=== PATIENT | male | born 1955 | race Caucasian/White ===

== ENCOUNTER 2016-05-14 09:52 | Emergency (ER) | payer MEDICARE ==
--- NOTE | 2016-05-14 10:04 | ED.PDOC ---
History of Present Illness - General Chief Complaint: Cardiovascular Problem Stated Complaint: bilateral leg swelling,sob Time Seen by Provider: 05/14/16 09:58 Source: patient, RN notes reviewed Exam Limitations: no limitations - History of Present Illness Initial Comments: Jordan Handley 61 y/o male with history of cad,chf , asthma,dm2 stated that for the last 4 days both legs are getting more sweled up denies pain ,trauma ,fever cough.He also stated having exertional dyspnea ,2 pillow orthopnea but no chest pain.Had cardiac cath 5-7 years ago but unable to put stent patient stated arteries are narrowed. Timing/Duration: getting worse, other - 4 days ago Severity: moderate Improving Factors: nothing Worsening Factors: movement Associated Symptoms: shortness of breath Allergies/Adverse Reactions: Allergies NO KNOWN ALLERGY Allergy (Unverified 06/08/14 16:00) Home Medications: Ambulatory Orders Albuterol Inhaler [Ventolin Hfa Inhaler] 2 puff INH QID PRN #1 inh 06/08/14 Aspirin [Aspirin Adult Low Dose] 81 mg PO DAILY 05/14/16 Carvedilol 25 mg PO BID 05/14/16 Empagliflozin [Jardiance] 10 mg PO DAILY 05/14/16 Furosemide 40 mg PO BID 05/14/16 Glipizide 5 mg PO DAILY 05/14/16 Lisinopril 20 mg PO DAILY 05/14/16 Lisinopril & Hydrochlorothiazi [Lisinopril/Hctz 20-25 mg] 1 tab PO DAILY Metformin HCl 1,000 mg PO BID 05/14/16 Nitroglycerin 0.4 mg Tab [Nitrostat] 0 ea SL .Q5M 05/14/16 Potassium Chloride [Potassium Chloride ER] 20 meq PO DAILY 05/14/16 Pravastatin Sodium [Pravachol] 20 mg PO BEDTIME 05/14/16 Review of Systems - Review of Systems Constitutional: States: no symptoms reported EENTM: States: no symptoms reported Respiratory: States: see HPI Cardiology: States: see HPI, other - occasional chest heaviness Gastrointestinal/Abdominal: States: no symptoms reported Genitourinary: States: no symptoms reported Musculoskeletal: States: neck pain - chronic Skin: States: no symptoms reported Neurological: States: paresthesia - both lower extremities Endocrine: States: no symptoms reported Hematologic/Lymphatic: States: no symptoms reported Past Medical History (General) - Patient Medical History Hx of COPD: Yes Hx Cardiac Disorders: Yes Hx Congestive Heart Failure: Yes Hx Hypertension: Yes Hx Diabetes: Yes Hx Cancer: Yes - kidney Surgical History: other - left nephrectomy,neck ankle-orif - Vaccination History Hx Tetanus, Diphtheria Vaccination: Yes Hx Influenza Vaccination: No Hx Pneumococcal Vaccination: Yes - Social History Hx Tobacco Use: Yes Hx Alcohol Use: No Hx Depression: No - Female History Patient : No Family Medical History - Family History Mother Family History: Unknown Hx Family Congestive Heart Failure: Yes Hx Family Hypertension: Yes Hx Cardiac Disease: Yes Hx Family Diabetes: Yes Hx Family Cancer: Yes - skin,colon Physical Exam - Physical Exam General Appearance: Alert, Comfortable, No apparent distress Eye Exam: bilateral normal Ears, Nose, Throat: hearing grossly normal, normal ENT inspection, normal pharynx Neck: non-tender, full range of motion, supple Respiratory: chest non-tender, lungs clear, normal breath sounds, no respiratory distress, no accessory muscle use Cardiovascular/Chest: normal peripheral pulses, regular rate, rhythm, no edema, no gallop, no JVD, no murmur Peripheral Pulses: radial,right: 2+, radial,left: 2+, dorsalis pedis,right: 1+, dorsalis pedis,left: 1+ Gastrointestinal/Abdominal: normal bowel sounds, non tender, soft, no organomegaly, no pulsatile mass Back Exam: normal inspection, no CVA tenderness, no vertebral tenderness Extremity: normal range of motion, non-tender, normal inspection, pedal edema - bilateral 2+ Neurologic: no motor/sensory deficits, alert, normal mood/affect, oriented x 3 Skin Exam: normal color, warm/dry Lymphatic: no adenopathy Progress - Results/Orders Results/Orders: 05/14/16 10:30 EKG STAT 05/14/16 11:12 THYROID STIMULATING HORMONE Stat URIC ACID Stat Laboratory Results WBC 7.0 K/mm3 (4.8-10.8) 05/14/16 10:15 RBC 5.06 M/mm3 (4.70-6.10) 05/14/16 10:15 Hgb 14.1 gm/dL (14.0-18.0) 05/14/16 10:15 Hct 42.8 % (42.0-52.0) 05/14/16 10:15 MCV 84.7 fl (80.0-94.0) 05/14/16 10:15 MCH 27.8 pg (27.0-31.0) 05/14/16 10:15 MCHC 32.8 g/dL (33.0-37.0) L 05/14/16 10:15 RDW 16.1 % (11.5-14.5) H 05/14/16 10:15 Plt Count 231 K/mm3 (130-400) 05/14/16 10:15 MPV 8.9 fl (7.40-10.4) 05/14/16 10:15 Absolute Neuts (auto) 4.70 K/uL (1.8-6.8) 05/14/16 10:15 Absolute Lymphs (auto) 1.60 K/uL (1.0-3.4) 05/14/16 10:15 Absolute Monos (auto) 0.40 K/uL (0.2-0.8) 05/14/16 10:15 Absolute Eos (auto) 0.20 K/uL (0.0-0.4) 05/14/16 10:15 Absolute Basos (auto) 0.10 K/uL (0.0-0.1) 05/14/16 10:15 Neutrophils % 67.7 % (42.0-78.0) 05/14/16 10:15 Lymphocytes % 23.0 % (20.0-50.0) 05/14/16 10:15 Monocytes % 5.4 % (2.0-9.0) 05/14/16 10:15 Eosinophils % 2.7 % (1.0-5.0) 05/14/16 10:15 Basophils % 1.2 % (0.0-2.0) 05/14/16 10:15 PT 11.3 SECONDS (9.4-12.5) 05/14/16 10:15 INR 1.000 05/14/16 10:15 PTT (SP) 34.7 SECONDS (25.1-36.5) 05/14/16 10:15 D-Dimer, Quantitative < 230 ng/mL (0-230) 05/14/16 10:15 Sodium 140 mmol/L (135-145) 05/14/16 10:15 Potassium 3.9 mmol/L (3.6-5.0) 05/14/16 10:15 Chloride 101 mmol/L (101-111) 05/14/16 10:15 Carbon Dioxide 30 mmol/L (21-31) 05/14/16 10:15 Anion Gap 12.9 (12-18) 05/14/16 10:15 BUN 22 mg/dL (7-18) H 05/14/16 10:15 Creatinine 1.34 mg/dL (0.6-1.3) H 05/14/16 10:15 BUN/Creatinine Ratio 16.4 (10-20) 05/14/16 10:15 Random Glucose 248 mg/dL (70-105) H 05/14/16 10:15 Serum Osmolality 291.0 mOsm/L (275-295) 05/14/16 10:15 Uric Acid 5.1 mg/dL (2.6-7.2) 05/14/16 11:12 Calcium 8.8 mg/dL (8.4-10.2) 05/14/16 10:15 Magnesium 1.9 mg/dL (1.8-2.5) 05/14/16 10:15 Total Bilirubin 0.5 mg/dL (0.2-1.0) 05/14/16 10:15 Direct Bilirubin 0.1 mg/dL (0-0.2) 05/14/16 10:15 Indirect Bilirubin 0.4 mg/dL (0.2-0.8) 05/14/16 10:15 AST 29 IU/L (10-42) 05/14/16 10:15 ALT 51 IU/L (10-60) 05/14/16 10:15 Alkaline Phosphatase 82 IU/L (42-121) 05/14/16 10:15 Creatine Kinase 56 IU/L (38-174) 05/14/16 10:15 CK-MB (CK-2) 2.6 ng/mL (0.0-4.4) 05/14/16 10:15 CK-MB (CK-2) % Not Reportable 05/14/16 10:15 Troponin I 0.05 ng/mL (0.01-0.05) 05/14/16 10:15 B-Natriuretic Peptide 441.0 pg/ml (0-100) H* 05/14/16 10:15 Serum Total Protein 6.3 gm/dL (6.4-8.2) L 05/14/16 10:15 Albumin 2.9 g/dl (3.2-5.5) L 05/14/16 10:15 Urine Color Yellow (Yellow) 05/14/16 11:45 Urine Appearance Clear (Clear) 05/14/16 11:45 Urine pH 5.5 (4.5-7.8) 05/14/16 11:45 Ur Specific [place] 1.025 (1.005-1.030) 05/14/16 11:45 Urine Protein >=300 mg/dL H 05/14/16 11:45 Urine Glucose (UA) 100 mg/dL (Negative) H 05/14/16 11:45 Urine Ketones Negative mg/dL (NEGATIVE) 05/14/16 11:45 Urine Blood Trace-lysed (Negative) H 05/14/16 11:45 Urine Nitrite Negative 05/14/16 11:45 Urine Bilirubin Negative (NEGATIVE) 05/14/16 11:45 Urine Urobilinogen 0.2 mg/dL (0.2-1.0) 05/14/16 11:45 Ur Leukocyte Esterase Negative (Negative) 05/14/16 11:45 Urine RBC 0-1 /hpf 05/14/16 11:45 Urine WBC 0 /hpf 05/14/16 11:45 Ur Epithelial Cells 0 /hpf 05/14/16 11:45 Urine Bacteria 0 05/14/16 11:45 - EKG/XRAY/CT EKG: Sinus, nonspecific ST T wave Chg Comments: left lower lobe infiltrate Departure - Departure Clinical Impression: NSTEMI (non-ST elevation myocardial infarction), CHF, left ventricular, Abnormal thyroid stimulating hormone (TSH) level, Diabetes type 2, uncontrolled Time of Disposition: 16:26 - D/W Dr. Ojeda Hospitalist URS Disposition: Transfer to Hospital Condition: Good Referrals: DIANE CHAVIRA [Primary Care Provider] - 1-2 Weeks Home Medications: Ambulatory Orders Albuterol Inhaler [Ventolin Hfa Inhaler] 2 puff INH QID PRN #1 inh 06/08/14 Aspirin [Aspirin Adult Low Dose] 81 mg PO DAILY 05/14/16 Carvedilol 25 mg PO BID 05/14/16 Empagliflozin [Jardiance] 10 mg PO DAILY 05/14/16 Furosemide 40 mg PO BID 05/14/16 Glipizide 5 mg PO DAILY 05/14/16 Lisinopril 20 mg PO DAILY 05/14/16 Lisinopril & Hydrochlorothiazi [Lisinopril/Hctz 20-25 mg] 1 tab PO DAILY Metformin HCl 1,000 mg PO BID 05/14/16 Nitroglycerin 0.4 mg Tab [Nitrostat] 0 ea SL .Q5M 05/14/16 Potassium Chloride [Potassium Chloride ER] 20 meq PO DAILY 05/14/16 Pravastatin Sodium [Pravachol] 20 mg PO BEDTIME 05/14/16
--- NOTE | 2016-05-14 10:31 | RAD ---
EXAM DESCRIPTION: Chest,1 View CLINICAL HISTORY: 61 yearsMale, sob COMPARISON: June 08, 2014 IMPRESSION: Heart size and pulmonary vascularity are within normal limits. Medial left lung base infiltrates. Pneumonia is suggested. Recommend follow-up study in 6-8 weeks to document resolution. No acute osseous abnormality. Electronically signed by: Rian Brantley MD 05/14/2016 10:30 AM PRIZE COORDINATOR
[2016-05-14] MEDS ORDERED: BUMETANIDE 0.25 MG/ML VIAL IV ONE (10:41)
[2016-05-14 17:56] VITALS: BP 178/74; TEMP 98.1; O2SAT 96
== END 2016-05-14 17:45 | disposition short-term general hospital (02) ==
LOC: ER 09:52
DX: I21.4 Non-ST elevation (NSTEMI) myocardial infarction (principal); E11.65 Type 2 diabetes mellitus with hyperglycemia; I11.0 Hypertensive heart disease with heart failure; I50.1 Left ventricular failure, unspecified; R94.6 Abnormal results of thyroid function studies; Z85.528 Personal history of other malignant neoplasm of kidney; Z90.5 Acquired absence of kidney; Z87.891 Personal history of nicotine dependence; Z79.899 Other long term (current) drug therapy; Z79.82 Long term (current) use of aspirin
CPT/HCPCS: 36415; 71010; 80048; 80076; 81001; 82550; 82553; 83880; 84443; 84484; 84550; 85025; 85379; 85610; 85730; 93005; J3490

== ENCOUNTER → 2016-06-24 | Outpatient (CLI) | payer MEDICARE | LOC: LAB.O 10:06 | PROVIDERS: ATTEND Internal Medicine Nephrology | DX: N18.4 Chronic kidney disease, stage 4 (severe) (principal) ==

== ENCOUNTER 2017-07-21 15:10 | Inpatient (IN) | payer MEDICARE ==
[2017-07-21] MEDS ORDERED: NITROGLYCERIN 0.4 MG 25 EA TAB SL ONE ×2 (15:17→15:26)
--- NOTE | 2017-07-21 15:25 | ED.PDOC ---
History of Present Illness - General Chief Complaint: Respiratory Problem Stated Complaint: shortness of breath Time Seen by Provider: 07/21/17 15:12 Source: patient Exam Limitations: no limitations - History of Present Illness Initial Comments: Jordan Handley 62 y/o male with history of CHF brought by relative due to worsening SOB for the last 3 days aand this am Woke up with difficulty breathing while lasying down .Denies chest pain symptoms,with occasional dry cough no fever or chills.Echocardiogram-05/15/2016 EF-65 %hyperdynamic LV Timing/Duration: other - 3 days Severity: moderate Activities at Onset: sleep Possible Cause: occasional episodes Improving Factors: nothing Worsening Factors: nothing Associated Symptoms: other - see hpi Respiratory Risk Factors: other - chf Allergies/Adverse Reactions: Allergies NO KNOWN ALLERGY Allergy (Unverified 06/08/14 16:00) Home Medications: Ambulatory Orders Albuterol Inhaler [Ventolin Hfa Inhaler] 2 puff INH QID PRN #1 inh 06/08/14 Aspirin [Aspirin Adult Low Dose] 325 mg PO DAILY 05/14/16 Carvedilol 25 mg PO BID 05/14/16 Empagliflozin [Jardiance] 25 mg PO DAILY 05/14/16 Furosemide 40 mg PO BID 05/14/16 Lisinopril & Hydrochlorothiazi [Lisinopril/Hctz 20-25 mg] 1 tab PO DAILY Nitroglycerin 0.4 mg Tab [Nitrostat] 0 ea SL .Q5M 05/14/16 Potassium Chloride [Potassium Chloride ER] 20 meq PO BID 05/14/16 Amlodipine Besylate 10 mg PO DAILY 07/21/17 Atorvastatin Calcium [Lipitor] 40 mg PO DAILY 07/21/17 Duloxetine HCl 60 mg PO DAILY 07/21/17 Insulin Degludec [Tresiba Flextouch] 45 unit SC DAILY 07/21/17 Levocetirizine Dihydrochloride [Levocetirizine Dihydrochl] 5 mg PO PRN 07/21/17 Liraglutide [Victoza] 1.2 mg SC DAILY 07/21/17 [place]-2-Aslg Ethyl Esters [Lovaza 1 gm] 2 cap PO BID 07/21/17 Review of Systems - Review of Systems Constitutional: States: no symptoms reported EENTM: States: no symptoms reported Respiratory: States: see HPI, cough Cardiology: States: see HPI Gastrointestinal/Abdominal: States: no symptoms reported Genitourinary: States: no symptoms reported Musculoskeletal: States: no symptoms reported Skin: States: no symptoms reported Neurological: States: no symptoms reported Endocrine: States: no symptoms reported All other Systems: Reviewed and Negative, No Change from Baseline Past Medical History (General) - Patient Medical History Hx of COPD: Yes Hx Cardiac Disorders: Yes Hx Congestive Heart Failure: Yes Hx Hypertension: Yes Hx Diabetes: Yes Hx Cancer: Yes - kidney Surgical History: other - left nephrectomy ,c-spine,ankle - Vaccination History Hx Tetanus, Diphtheria Vaccination: Yes Hx Influenza Vaccination: No Hx Pneumococcal Vaccination: Yes - Social History Hx Tobacco Use: Yes Hx Alcohol Use: No Hx Depression: No - Female History Patient : No Family Medical History - Family History Mother Family History: Unknown Hx Family Congestive Heart Failure: Yes Hx Family Hypertension: Yes Hx Cardiac Disease: Yes Hx Family Diabetes: Yes Hx Family Cancer: Yes - skin,colon Physical Exam - Physical Exam General Appearance: Alert, Comfortable, No apparent distress, Other - speaks in fullsentences Eyes, Ears, Nose, Throat Exam: normal ENT inspection Neck: non-tender, supple, normal inspection Respiratory: chest non-tender, no respiratory distress, decreased breath sounds Cardiovascular/Chest: normal peripheral pulses, regular rate, rhythm, no murmur Peripheral Pulses: radial,right: 2+, radial,left: 2+ Gastrointestinal/Abdominal: normal bowel sounds, non tender, soft Extremity: normal range of motion, non-tender, no calf tenderness, pedal edema Neurologic: alert, oriented x 3 Skin Exam: normal color, warm/dry Progress - Progress Progress: 07/21/17 15:48 Vital Signs - 8 hr 07/21/17 07/21/17 07/21/17 15:22 15:32 15:40 Temperature 98.6 F Pulse Rate [ 102 H 93 H 97 H Left Brachial] Respiratory 36 H 28 H 36 H Rate Blood Pressure 259/162 240/116 240/116 [Left Arm] O2 Sat by Pulse 78 L 92 L 94 L Oximetry 07/21/17 15:41 Temperature Pulse Rate [ 102 H Left Brachial] Respiratory 36 H Rate Blood Pressure [Left Arm] O2 Sat by Pulse Oximetry - Results/Orders Results/Orders: 07/21/17 15:30 Nitroglycerin/D5w IV 50,000 mcg Premix Bottle 1 bottle IVS PRN EKG STAT 07/21/17 15:44 Catheter:Anna QSHIFT Intake/Output Q2HX2,Q4HX2,QSHIFT Laboratory Results - last 24 hr 07/21/17 07/21/17 07/21/17 15:20 15:28 16:04 WBC 9.5 RBC 5.50 Hgb 15.6 Hct 46.1 MCV 83.7 MCH 28.5 MCHC 34.0 RDW 15.1 H Plt Count 296 MPV 9.6 Absolute Neuts (auto) 6.50 Absolute Lymphs (auto) 2.30 Absolute Monos (auto) 0.40 Absolute Eos (auto) 0.20 Absolute Basos (auto) 0.10 Neutrophils % 68.1 Lymphocytes % 23.8 Monocytes % 4.7 Eosinophils % 2.3 Basophils % 1.1 PT 11.4 INR 0.980 PTT (SP) 35.6 pCO2 55 H pO2 66 L HCO3 28.1 ABG pH 7.330 L ABG O2 Saturation 93.6 L ABG Base Excess 1.5 ABG Deoxyhemoglobin 6.3 H Oxyhemoglobin % 91.5 L Carboxyhemoglobin % 0.4 L Methemoglobin % Sat 1.8 H Calc Total Hemoglobin 13.4 L Sodium 143 Potassium 3.8 Chloride 103 Carbon Dioxide 32 H Anion Gap 11.8 L BUN 21 H Creatinine 1.47 H BUN/Creatinine Ratio 14.3 Random Glucose 235 H Serum Osmolality 295.5 H Calcium 9.3 Magnesium 2.2 Total Bilirubin 0.6 Direct Bilirubin 0.1 Indirect Bilirubin 0.5 AST 46 H ALT 52 Alkaline Phosphatase 122 H Creatine Kinase 90 CK-MB (CK-2) 3.3 CK-MB (CK-2) % Not Reportable Troponin I 0.04 B-Natriuretic Peptide 1340.0 H* Serum Total Protein 7.2 Albumin 3.6 Urine Color Yellow Urine Appearance Clear Urine pH 5.5 Ur Specific [place] 1.025 Urine Protein >=300 H Urine Glucose (UA) 250 H Urine Ketones Negative Urine Blood Trace-intact H Urine Nitrite Negative Urine Bilirubin Negative Urine Urobilinogen 0.2 Ur Leukocyte Esterase Negative Urine RBC 0-1 Urine WBC 0 Ur Epithelial Cells 0 Amorphous Sediment 2+ Urine Bacteria 0 - EKG/XRAY/CT XRAY: chest - developing chf,small bilateral pleural effusion Departure - Departure Clinical Impression: Diastolic CHF, acute on chronic, Dyspnea due to congestive heart failure Diabetes type 2, uncontrolled Qualifiers: Diabetes mellitus complication status: without complication 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: with [place] use Qualified Code(s): E11.65 - Type 2 diabetes mellitus with hyperglycemia Time of Disposition: 18:11 Disposition: Admit Patient Condition: Fair Departure Forms: Patient Portal Self Enrollment Referrals: DIANE CHAVIRA [Primary Care Provider] - 1-2 Weeks Home Medications: Ambulatory Orders Albuterol Inhaler [Ventolin Hfa Inhaler] 2 puff INH QID PRN #1 inh 06/08/14 Aspirin [Aspirin Adult Low Dose] 325 mg PO DAILY 05/14/16 Carvedilol 25 mg PO BID 05/14/16 Empagliflozin [Jardiance] 25 mg PO DAILY 05/14/16 Furosemide 40 mg PO BID 05/14/16 Lisinopril & Hydrochlorothiazi [Lisinopril/Hctz 20-25 mg] 1 tab PO DAILY Nitroglycerin 0.4 mg Tab [Nitrostat] 0 ea SL .Q5M 05/14/16 Potassium Chloride [Potassium Chloride ER] 20 meq PO BID 05/14/16 Amlodipine Besylate 10 mg PO DAILY 07/21/17 Atorvastatin Calcium [Lipitor] 40 mg PO DAILY 07/21/17 Duloxetine HCl 60 mg PO DAILY 07/21/17 Insulin Degludec [Tresiba Flextouch] 45 unit SC DAILY 07/21/17 Levocetirizine Dihydrochloride [Levocetirizine Dihydrochl] 5 mg PO PRN 07/21/17 Liraglutide [Victoza] 1.2 mg SC DAILY 07/21/17 Tfqrv-4-Saai Ethyl Esters [Lovaza 1 gm] 2 cap PO BID 07/21/17 Decision To Admit - Decistion To Admit Decision to Admit Reason: Admit from ER - D/W Jordan Wolff-ANP/Hospitalist Decision to Admit Date: 07/21/17 Decision to Admit Time: 18:09
[2017-07-21] MEDS ORDERED: BUMETANIDE 0.25 MG/ML VIAL IV ONE (15:26)
[2017-07-21] MEDS ORDERED: NITROGLYCERIN/D5W IV 50,000 MCG in PREMIX BOTTLE 1 BOTTLE IVS SCH (15:30)
[2017-07-21] MEDS ORDERED: NITROGLYCERIN/D5W IV 250 ML IVS ONE (15:30)
--- NOTE | 2017-07-21 15:52 | RAD ---
EXAM DESCRIPTION: Chest,1 View CLINICAL HISTORY: chf COMPARISON: May 14, 2016 IMPRESSION: Single AP portable upright view of the chest shows enlargement of the cardiac silhouette with mild prominence of the pulmonary vascularity that could indicate developing congestive heart failure compared to previous exam. Bibasilar infiltrates are now seen. Mild blunting of the costophrenic angles bilaterally suggests small pleural effusions new from previous exam.. Electronically signed by: Vick Darby MD 07/21/2017 3:50 PM CDT
[2017-07-21] MEDS ORDERED: NITROGLYCERIN 0.4 MG/HR PATCH TOP ONE (16:33)
[2017-07-21] MEDS ORDERED: FUROSEMIDE INJ 40 MG/4 ML VIAL IV ONE (16:34)
[2017-07-21] MEDS ORDERED: ENALAPRILAT INJ 1.25 MG/ML VIAL IV ONE (17:13)
--- NOTE | 2017-07-21 18:40 | HP ---
SUPERVISING PHYSICIAN: Tadeo Harding M.D. CHIEF COMPLAINT: Shortness of breath. HISTORY OF PRESENT ILLNESS: This is a 62 year-old male patient with a history of diastolic heart failure as well as hypertension and diabetes who came to the E. R. with shortness of breath. Apparently this had been going on for the last 3 days or so but progressively worsening. He woke up last night with severe shortness of breath and difficulty breathing lying down. He has had no chest pain. No fever or chills to speak of. Upon arrival in the E. R., he was noted to be super hypertensive with an initial blood pressure of259/162. His heart rate was elevated at 102. O2 saturations were 78% on room air. He was given some Vasotec and Lasix, also Nitroglycerin. Eventually the blood pressure became more manageable. He put out over a liter of urine in the Emergency Room and his shortness of breath improved, and O2 saturations improved on oxygen as well, however he still remains a bit tachypneic with O2 saturations in the low 90s on oxygen. He was still a bit hypertensive and therefore he has been referred for admission. PAST MEDICAL HISTORY: 1. Coronary artery disease for which the patient states that they could not place a stent. 2. Chronic obstructive pulmonary disease. 3. Diabetes mellitus type 2. 4. Left renal cell carcinoma. 5. Cardiomyopathy. 6. Hypertension. 7. Morbid obesity. PAST SURGICAL HISTORY: 1. Left nephrectomy due to renal cell carcinoma. 2. Ankle reconstruction. 3. Neck surgery. 4. Cardiac angiograms. CURRENT MEDICATIONS: 1. Albuterol HFA 64mcg puff, 2 puffs q.i.d. as needed. 2. Amlodipine 10 mg p.o. daily. 3. Aspirin 325 mg p.o. daily. 4. Atorvastatin 40 mg p.o. daily. 5. Carvedilol 25 mg p.o. b.i.d. 6. Duloxetine 60 mg p.o. daily. 7. Jardiance 25 mg p.o. daily. 8. Furosemide 40 mg p.o. b.i.d. 9. Tresiba 45 units subcue daily. 10. Levocetirizine 5 mg p.o. as needed. 11. Victoza 1.2 mg subcutaneously daily. 12. Lisinopril HCTZ 20/25 p.o. daily. 13. Nitroglycerin sublingual 0.4 mg. 14. [place]-3 two caps p.o. b.i.d. 15. Potassium 20 mEq p.o. b.i.d. ALLERGIES: NO KNOWN DRUG ALLERGIES. FAMILY HISTORY: Diabetes, coronary artery disease and cancer. SOCIAL HISTORY: The patient is an ex-smoker who quit about 9 years ago. No alcohol. No illicit drugs. REVIEW OF SYSTEMS: CONSTITUTIONAL: No fever or chills. No recent weight loss or weight gain. HEENT: No vision changes, ear pain, nasal congestion or throat pain. RESPIRATORY: Positive for shortness of breath. Positive for orthopnea. No pleuritic chest pain. No cough. CARDIOVASCULAR: No chest pain. No palpitations but he does have peripheral edema. GASTROINTESTINAL: No nausea, vomiting, diarrhea, constipation or abdominal pain. GENITOURINARY: No dysuria, frequency or flank pain. MUSCULOSKELETAL: No joint pain, joint swelling or muscle cramps. ENDOCRINE: No polydipsia, polyuria or polyphagia. No heat or cold intolerance. HEMATOLOGIC: No easy bruising or transfusion reaction. NEUROLOGIC: No paresthesias, seizures or syncope. PHYSICAL EXAMINATION: VITAL SIGNS: Blood pressure is now 158/78, heart rate 78, respiratory rate 20, temperature 97.0, oxygen saturation 96% on 4 liters via nasal cannula. GENERAL: Mr. Handley is a 62 year-old male patient who still is a little bit dyspneic at rest. HEENT: Head is normocephalic and atraumatic. Eyes: Pupils are equal and reactive. Nose: With no drainage. Throat: With moist mucosa. NECK: Supple. Midline trachea. No visible jugular venous distention but his neck is quite thick. CHEST: Symmetrical with equal rise and fall of the chest with inspiration and expiration. Lung sounds are bibasilar rales but no wheezing. CARDIOVASCULAR: The patient has a regular rate and rhythm. Normal S1 and S2. ABDOMEN: Soft, obese. Positive bowel sounds. GENITOURINARY: Exam is deferred. EXTREMITIES: Lower extremities with 2+ ankle edema. Pulses are 2+. Capillary refill is less than 2 seconds. NEUROLOGIC: The patient is alert and oriented and moves all extremities. Extraocular movements are intact. LABORATORY: Normal white count, normal hemoglobin. INR is normal. Arterial blood gas with a pH of 7.33, PCO2 of 55, PO2 of 66, bicarb of 28.1, base excess 1.5 with O2 saturation of 93.6. Chemistry shows an elevated carbon dioxide level of 32 which would match up pretty much with his ABG and he likely has some chronic respiratory failure. BUN is 21, creatinine 1.47. BNP was 1340, glucose 235. Urine with proteinuria. ASSESSMENT: 1. Congestive heart failure exacerbation which is diastolic given his history of normal ejection fraction and left ventricular hypertrophy. 2. Hypertensive urgency. 3. Acute on chronic kidney disease. 4. Diabetes mellitus. 5. Proteinuria. PLAN: We are going to admit him under CHF protocol with scheduled diuretics. Resuming his home medications and will give him p.r.n. blood pressure medications as needed. His renal function is a little bit above, I think, his baseline. It could be related to his heart failure. I will monitor this pretty closely while having him on diuretics. I am going to restart his home diabetes medication. He states that he forgot to take his injection this morning. I do not think at this point he will need sliding scale insulin. If he shows to be uncontrolled, I can start that. His proteinuria is likely related to his chronic kidney disease as well as uncontrolled hypertension. I see that he has been in the E. R. recently in the past and has seen a safety spec. He may need to followup as an outpatient for this. Will recheck his labs and x-ray in the morning as well as his arterial blood gas. #[id number] PRATIMA
[2017-07-21] MEDS ORDERED: NITROGLYCERIN 0.4 MG 25 EA TAB SL PRN (19:40)
[2017-07-21] MEDS ORDERED: ALBUTEROL INHALER 64 PUFF/8GM INH PRN (19:44)
[2017-07-21] MEDS ORDERED: NON-FORMULARY MEDICATION 1 EA MIS (Levocetirizine Dihydrochloride [Levocetirizine Dihydroc PO SCH (19:45)
[2017-07-21] MEDS ORDERED: IV SET AND CAP CHANGE INJ INJ SCH (20:00)
[2017-07-21] MEDS ORDERED: POTASSIUM CHLORIDE 20 MEQ TAB ONE (20:15)
[2017-07-21] MEDS ORDERED: CARVEDILOL 12.5 MG TAB ONE (20:15)
[2017-07-21] MEDS: ENOXAPARIN SODIUM 40 MG/0.4 ML SYG SUBCU SCH (20:22)
[2017-07-21] MEDS ORDERED: NON-FORMULARY MEDICATION 1 EA MIS (Potassium Chloride [Potassium Chloride Er] 20 MEQ) PO SCH (21:00)
[2017-07-21] MEDS ORDERED: NON-FORMULARY MEDICATION 1 EA MIS (Carvedilol [Carvedilol] 25 MG) PO SCH (21:00)
[2017-07-21] MEDS ORDERED: GLUCAGON INJ 1 MG VIAL SUBCU PRN (22:44)
[2017-07-21] MEDS ORDERED: DEXTROSE 50% 25 GM/50 ML SYG IV PRN (22:44)
--- NOTE | 2017-07-22 07:04 | RAD ---
EXAM DESCRIPTION: Chest,1 View CLINICAL HISTORY: CHF COMPARISON: July 21, 2017 FINDINGS: The heart is slightly enlarged but stable from the prior study. Mediastinal contours are otherwise unremarkable. Postoperative changes in the cervical spine are partially visualized. The central bronchovascular markings are slightly indistinct. There is some subtle alveolar opacity in the right lung base with a questionable tiny right-sided pleural effusion. There is no pneumothorax or acute fracture. IMPRESSION: Mild CHF including bibasilar edema with a possible tiny right-sided effusion, all stable or slightly improved from yesterday. Pneumonia is a less likely consideration. No new abnormality. Electronically signed by: Reyes Arauz MD 07/22/2017 7:03 AM CDT
[2017-07-22] MEDS: INSULIN LISPRO 100 UNITS/ML PEN SUBCU SCH ×4 (07:37→21:17)
[2017-07-22] MEDS: POTASSIUM CHLORIDE 20 MEQ TAB PO SCH ×2 (08:48→17:34)
[2017-07-22] MEDS: ASPIRIN (ENTERIC COATED) 325 MG TAB PO SCH (08:48)
[2017-07-22] MEDS: LISINOPRIL 10 MG TAB PO SCH ×2 (08:48→09:00)
[2017-07-22] MEDS: ATORVASTATIN 20 MG TAB PO SCH (08:48)
[2017-07-22] MEDS: amLODIPine BESYLATE 5 MG TAB PO SCH (08:48)
[2017-07-22] MEDS: CARVEDILOL 12.5 MG TAB PO SCH ×2 (08:49→20:38)
[2017-07-22] MEDS: FUROSEMIDE INJ 40 MG/4 ML VIAL IV SCH ×2 (08:49→17:34)
[2017-07-22] MEDS: hydroCHLOROthiazide 25 MG TAB PO SCH (08:50)
[2017-07-22] MEDS: DULoxetine HCL 30 MG CAP PO SCH (08:55)
[2017-07-22] MEDS: SODIUM CHLORIDE 0.9% (FLUSH) 10 ML SYG IV PRN ×2 (08:58→17:35)
[2017-07-22] MEDS ORDERED: POTASSIUM CHLORIDE 20 MEQ TAB PO ONE (11:21)
[2017-07-22] MEDS: INSULIN DEGLUDEC 45 UNIT SC SCH (12:26)
[2017-07-22] MEDS: LIRAGLUTIDE 1.2 MG SC SCH (12:27)
[2017-07-22] MEDS: NON-FORMULARY MEDICATION 1 EA MIS (Empagliflozin [Jardiance] 25 MG) PO SCH (13:13)
--- NOTE | 2017-07-22 13:17 | PN ---
SUPERVISING PHYSICIAN: Tadeo Harding MD DATE: 07/22/17 SUBJECTIVE: The patient is sitting up in his chair in his hospital room. He is visiting with friends. He can breathe much better today although he still has some shortness of breath with exertion. He denies chest pain, nausea, vomiting or diarrhea. OBJECTIVE: VITAL SIGNS: Afebrile. Heart rate 64. Blood pressure 158/83. Respiratory rate 20. O2 saturation 94% on 3 liters nasal cannula. RESPIRATORY: Essentially clear to auscultation bilaterally, slightly diminished at the bases. There are a few fine scattered crackles in the apices. CARDIAC: Regular rate and rhythm. GASTROINTESTINAL: Abdomen is soft, nondistended, nontender. Bowel sounds are positive. EXTREMITIES: There is +1 pedal edema bilaterally. Otherwise, no cyanosis or clubbing. NEUROLOGIC: Awake, alert and oriented times three. LABORATORY: Sodium 138, potassium slightly low at 3.4, chloride 101, carbon dioxide 27, BUN 22, creatinine 1.45. Baseline creatinine is about 1.3. BNP 480. WBCs 8, hemoglobin 13.1, hematocrit 39.1. Blood gasses show PCO2 46, PO2 83, bicarb 30.6, pH 7.44, O2 sat 97%. Chest x-ray per radiologic interpretation reveals mild congestive heart failure including bibasilar edema with a possible tiny right sided effusion, all stable or slightly improve deferens yesterday. Pneumonia is less likely consideration. All other labs and films have been reviewed via the EMR. ASSESSMENT: 1. Congestive heart failure with exacerbation, diastolic in etiology. He has a history of normal ejection fraction with left ventricular hypertrophy. 2. Hypertensive urgency, improved. 3. Acute on chronic kidney disease. 4. Diabetes mellitus. 5. Proteinuria. 6. Mild hypokalemia. PLAN: We will continue the congestive heart failure guidelines. Continue to monitor his input and output. I have continued IV Lasix today and tomorrow I will put him on daily dosing of p.o. Lasix. He will need a close followup with his mental health advanced practice nurse, Dr. Jacques, on discharge. I will attempt to get him some samples of Victoza and Tresiba so those can be restarted as he does not have his home medications here. I have also ordered an ambulation study for tomorrow to make sure he does not need home oxygen. I have also given him one dose of supplemental potassium. I will recheck his labs in the morning. Otherwise, we will continue to monitor the patient closely and follow as needed. Dr. Harding is the collaborating physician and available for consultation. #[id number] [facility]
[2017-07-22] MEDS: ENOXAPARIN SODIUM 40 MG/0.4 ML SYG SUBCU SCH (20:38)
[2017-07-23] MEDS: INSULIN LISPRO 100 UNITS/ML PEN SUBCU SCH ×3 (07:25→16:53)
[2017-07-23] MEDS: POTASSIUM CHLORIDE 20 MEQ TAB PO SCH ×2 (07:27→17:11)
[2017-07-23] MEDS ORDERED: POTASSIUM CHLORIDE 20 MEQ TAB PO ONE ×2 (08:47→08:48)
[2017-07-23] MEDS: ASPIRIN (ENTERIC COATED) 325 MG TAB PO SCH (09:07)
[2017-07-23] MEDS: DULoxetine HCL 30 MG CAP PO SCH (09:08)
[2017-07-23] MEDS: CARVEDILOL 12.5 MG TAB PO SCH ×2 (09:08→20:16)
[2017-07-23] MEDS: INSULIN DEGLUDEC 45 UNIT SC SCH (09:09)
[2017-07-23] MEDS: hydroCHLOROthiazide 25 MG TAB PO SCH (09:09)
[2017-07-23] MEDS: NON-FORMULARY MEDICATION 1 EA MIS (Empagliflozin [Jardiance] 25 MG) PO SCH (09:09)
[2017-07-23] MEDS: ATORVASTATIN 20 MG TAB PO SCH (09:10)
[2017-07-23] MEDS: FUROSEMIDE 40 MG TAB PO SCH (09:10)
[2017-07-23] MEDS: LIRAGLUTIDE 1.2 MG SC SCH (09:11)
[2017-07-23] MEDS: amLODIPine BESYLATE 5 MG TAB PO SCH (09:12)
[2017-07-23] MEDS: LISINOPRIL 10 MG TAB PO SCH (09:12)
--- NOTE | 2017-07-23 10:33 | PN ---
SUPERVISING PHYSICIAN: Tadeo Harding MD DATE: 07/23/17 SUBJECTIVE: The patient is sitting up in his chair in his hospital room. He is eating his breakfast. He continues to feel much better. He still gets very short of breath with exertion, but at rest he has no shortness of breath. We discussed that he would get up to ambulate and his Anna catheter would be discontinued. His potassium was low today, so I will replace that and we are adjusting his medications. OBJECTIVE: VITAL SIGNS: Afebrile. Heart rate 65. Blood pressure 116/75. Respiratory rate 20. O2 saturation 91% on 2 liters nasal cannula. His input and output shows a negative balance of 640 mL since admission and he has lost approximately 2.5 kg. RESPIRATORY: Essentially clear to auscultation bilaterally, slightly diminished at the bases. He is slightly tachypneic at times. CARDIAC: Regular rate and rhythm. GASTROINTESTINAL: Abdomen is soft, nondistended, nontender. Bowel sounds are positive. EXTREMITIES: There is trace pedal edema bilaterally but no cyanosis or clubbing. NEUROLOGIC: Awake, alert and oriented times three. LABORATORY: WBCs 9, hemoglobin 13.8, hematocrit 41.1. Sodium 139, potassium slightly 3.2, chloride 96, carbon dioxide 34, BUN 23, creatinine 1.45. All other labs and films have been reviewed via the EMR. ASSESSMENT: 1. Congestive heart failure with exacerbation, diastolic in etiology. He has a history of normal ejection fraction with left ventricular hypertrophy. 2. Hypertensive urgency, improved. 3. Acute on chronic kidney disease. 4. Diabetes mellitus, type 2. 5. Proteinuria. 6. Mild hypokalemia. PLAN: We will continue present supportive care. He has been switched to p.o. Lasix. I have given him extra potassium replacement today and we will recheck his labs tomorrow. I have ordered his catheter to be discontinued and he is to ambulate in the halls four times a day. He will also need an ambulatory study for home O2 as he gets very short of breath with any exertion. He is on an MALINDA as well as a beta araceli. There is no current echocardiogram on his chart, so if he has not had an echocardiogram, it is recommended he have one. He does see Dr. Jacques in [place] as well as Dr. Adamson in [place]. We will send him home on some p.o. Lasix as well as some potassium. Hopefully, he will be discharged tomorrow. Dr. Harding is the collaborating physician and available for consultation. [facility][id number] [facility]
[2017-07-23] MEDS: ENOXAPARIN SODIUM 40 MG/0.4 ML SYG SUBCU SCH (20:16)
[2017-07-24] MEDS: INSULIN LISPRO 100 UNITS/ML PEN SUBCU SCH ×3 (03:45→12:23)
--- NOTE | 2017-07-24 07:17 | RAD ---
Procedure: XR CHEST 2 VIEWS Exam Date: 07/24/2017 Ordering Provider: MARGIE TRUONG Clinical Indication: chf Comparison: 07/22/2017 Findings: Cardiomediastinal silhouette: Unremarkable Pulmonary vasculature : Unremarkable Aortic calcification. Focal lung consolidation: None Pleural effusion: None Pneumothorax: None Bones and soft tissues: Nonacute Impression: 1. No acute abnormalities in the chest. Electronically signed by: Edwar Hurtado MD 07/24/2017 7:16 AM CDT
[2017-07-24] MEDS: FUROSEMIDE 40 MG TAB PO SCH (08:05)
[2017-07-24] MEDS: ASPIRIN (ENTERIC COATED) 325 MG TAB PO SCH (08:05)
[2017-07-24] MEDS: ATORVASTATIN 20 MG TAB PO SCH (08:05)
[2017-07-24] MEDS: LIRAGLUTIDE 1.2 MG SC SCH (08:05)
[2017-07-24] MEDS: INSULIN DEGLUDEC 45 UNIT SC SCH (08:05)
[2017-07-24] MEDS: DULoxetine HCL 30 MG CAP PO SCH (08:06)
[2017-07-24] MEDS: amLODIPine BESYLATE 5 MG TAB PO SCH (08:06)
[2017-07-24] MEDS: CARVEDILOL 12.5 MG TAB PO SCH (08:06)
[2017-07-24] MEDS: LISINOPRIL 10 MG TAB PO SCH (08:06)
[2017-07-24] MEDS: POTASSIUM CHLORIDE 20 MEQ TAB PO SCH (08:06)
[2017-07-24] MEDS: hydroCHLOROthiazide 25 MG TAB PO SCH (08:06)
[2017-07-24 08:28] VITALS: O2SAT 92
[2017-07-24] MEDS: NON-FORMULARY MEDICATION 1 EA MIS (Empagliflozin [Jardiance] 25 MG) PO SCH (09:13)
[2017-07-24] MEDS ORDERED: POTASSIUM CHLORIDE 20 MEQ TAB PO ONE (11:13)
[2017-07-24 13:44] VITALS: BP 161/78; TEMP 98.2
--- NOTE | 2017-07-24 18:33 | DS ---
SUPERVISING PHYSICIAN: Tadeo Harding M.D. DISCHARGE DIAGNOSIS: 1. Congestive heart failure with exacerbation, diastolic in etiology. He has a history of normal ejection fraction with left ventricular hypertrophy. 2. Hypertensive urgency, improved. 3. Acute on chronic kidney disease. 4. Diabetes mellitus, type 2. 5. Proteinuria. 6. Mild hypokalemia. HISTORY OF PRESENT ILLNESS: This is a 62 year-old male patient who has a history of diastolic heart failure, hypertension and diabetes who came to the [facility]. [facility]. with shortness of breath. It had been going on 3 days prior to his admission. He had severe shortness of breath especially when he was lying down. There was no chest pain. No fever or chills were reported. His initial blood pressure in the Emergency Room was 259/162 and his heart rate was 102. O2 saturations were 78% on room air. He was given some Vasotec and Lasix as well as a Nitroglycerin drip. His blood pressure became more manageable. After diuresing approximately 1 liter of urine , his shortness of breath improved as well as his oxygen saturations came up to the low 90s on 2 liters nasal cannula. He was still tachypneic. His initial BNP was 1,340. His electrolytes were basically within normal limits but his creatinine was elevated at 1.47, alkaline phosphatase was elevated at 122 with AST of 46. Cardiac enzymes were negative. He was admitted to the hospital and put on CHF guidelines. HOSPITAL COURSE: There was also a question if the patient has been very compliant with his medications as he has not taken his Lasix for quite some time. He was not sure if he even took his antihypertensives as they had been ordered. He sees Dr. Adamson in [place] as well as Dr. Jacques, wafer machine operator in [place]. Over the next few days he was aggressively diuresed. His I & O was negative at 4500 mL. His breathing improved. He did have an ambulatory study that reported he had some dyspnea and low O2 sats with exertion, so he will have home O2 on discharge. His IV Lasix was switched to p.o. Lasix. He did have to have potassium supplementation multiple times. His home medications were continued. His blood pressure was between 116/75 and 163/83. There is no recent echocardiogram on the chart and an echocardiogram was also ordered. He is on a beta araceli as well as an Manuel inhibitor. He has been walking in the hallways with oxygen and he will be discharged home in stable condition. DISCHARGE PLAN: The patient will be discharged home in stable condition. He is to resume his previous activity and medications with the addition of Lasix 40 mg daily and potassium 20 mEq daily. Home O2 has been set up for him. He is to use it at night and as needed during the day. He is to followup with Dr. Adamson within the next 1 to [address] Jacques, his wafer machine operator, within the next 2 weeks. CHF teaching was done. He is to return to the hospital or call Dr. Adamson's office for any further problems or complications. DISCHARGE MEDICATIONS: 1. Albuterol inhaler. 2. Nitroglycerin. 3. Aspirin. 4. Lisinopril hydrochlorothiazide. 5. Carvedilol. 6. Jardiance. 7. Tresiba. 8. Dwale-3 fatty acids. 9. Levocetirizine. 10. Duloxetine. 11. Atorvastatin. 12. Amlodipine. 13. Victoza. 14. Furosemide. 15. Potassium chloride. #[id number] [facility]
[2017-07-26] MEDS: LISINOPRIL 10 MG TAB PO SCH (08:15)
== END 2017-07-24 12:45 | disposition home or self-care (01) | DRG 291 ==
LOC: ER 15:10 → MS 18:38
PROVIDERS: ADMIT Nurse Practitioner; ATTEND Nurse Practitioner Acute Care
DX: I13.0 Hypertensive heart and chronic kidney disease with heart failure and stage 1 through stage 4 chronic kidney disease, or unspecified chronic kidney disease (principal); I50.33 Acute on chronic diastolic (congestive) heart failure; N17.9 Acute kidney failure, unspecified; I16.0 Hypertensive urgency; I42.9 Cardiomyopathy, unspecified; N18.9 Chronic kidney disease, unspecified; E11.22 Type 2 diabetes mellitus with diabetic chronic kidney disease; E87.6 Hypokalemia; T50.1X6A Underdosing of loop [high-ceiling] diuretics, initial encounter; I25.10 Atherosclerotic heart disease of native coronary artery without angina pectoris; J44.9 Chronic obstructive pulmonary disease, unspecified; E66.01 Morbid (severe) obesity due to excess calories; Z79.82 Long term (current) use of aspirin; Z79.84 Long term (current) use of oral hypoglycemic drugs; Z79.899 Other long term (current) drug therapy; Z87.891 Personal history of nicotine dependence; Z85.528 Personal history of other malignant neoplasm of kidney; Z90.5 Acquired absence of kidney; Z91.14 Patient's other noncompliance with medication regimen; Z91.128 Patient's intentional underdosing of medication regimen for other reason; Y92.009 Unspecified place in unspecified non-institutional (private) residence as the place of occurrence of the external cause; Z68.37 Body mass index [BMI] 37.0-37.9, adult

== ENCOUNTER 2017-11-10 13:09 | Emergency (ER) | payer MEDICARE ==
--- NOTE | 2017-11-10 13:42 | ED.PDOC ---
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 Timing/Duration: other - 2 days Severity: moderate Activities at Onset: activity Possible Cause: occasional episodes Improving Factors: nothing Worsening Factors: nothing Associated Symptoms: wheezing Respiratory Risk Factors: other - copd Allergies/Adverse Reactions: Allergies NO KNOWN ALLERGY Allergy (Verified 07/21/17 23:27) Home Medications: Ambulatory Orders Albuterol Inhaler [Ventolin Hfa Inhaler] 2 puff INH QID PRN #1 inh 06/08/14 Aspirin [Aspirin Adult Low Dose] 325 mg PO DAILY 05/14/16 Carvedilol 25 mg PO BID 05/14/16 Lisinopril & Hydrochlorothiazi [Lisinopril/Hctz 20-25 mg] 1 tab PO DAILY Nitroglycerin 0.4 mg Tab [Nitrostat] 0 ea SL .Q5M 05/14/16 Amlodipine Besylate 10 mg PO DAILY 07/21/17 Atorvastatin Calcium [Lipitor] 40 mg PO DAILY 07/21/17 Insulin Degludec [Tresiba Flextouch] 38 unit SC DAILY 07/21/17 Levocetirizine Dihydrochloride [Levocetirizine Dihydrochl] 5 mg PO DAILY Liraglutide [Victoza] 1.2 mg SC DAILY 07/21/17 Pfmpm-6-Fkhm Ethyl Esters [Lovaza 1 gm] 2 cap PO BID 07/21/17 Furosemide [Lasix] 40 mg PO BID 11/10/17 Glipizide 5 mg PO DAILY 11/10/17 Potassium Chloride Tab [K-Dur] 20 meq PO BID 11/10/17 Review of Systems - Review of Systems Constitutional: States: no symptoms reported EENTM: States: no symptoms reported Respiratory: States: see HPI Cardiology: States: no symptoms reported Gastrointestinal/Abdominal: States: no symptoms reported Genitourinary: States: no symptoms reported Musculoskeletal: States: no symptoms reported Skin: States: no symptoms reported Neurological: States: no symptoms reported Past Medical History (General) - Patient Medical History Hx Seizures: No Hx Stroke: No Hx Asthma: Yes Hx of COPD: Yes Hx Cardiac Disorders: Yes Hx Congestive Heart Failure: Yes Hx Pacemaker: No Hx Hypertension: Yes Hx Diabetes: Yes Hx Renal Disease: Yes Hx Cancer: Yes - Kidney Hx MRSA: No Surgical History: other - left nephrectomy,neck,ankle, - Vaccination History Hx Tetanus, Diphtheria Vaccination: Yes Hx Influenza Vaccination: Yes Hx Pneumococcal Vaccination: Yes - Social History Hx Tobacco Use: Yes Hx Alcohol Use: Yes - Yrs ago Hx Substance Use: No Hx Depression: No Hx Physical Abuse: No Hx Emotional Abuse: No - Female History Patient : No Family Medical History - Family History Mother Family History: Unknown Hx Family Congestive Heart Failure: Yes Hx Family Hypertension: Yes - parents Hx Cardiac Disease: Yes - parents Hx Family Diabetes: Yes Hx Family Cancer: Yes - skin,colon Physical Exam - Physical Exam General Appearance: Alert, Comfortable, No apparent distress Eyes, Ears, Nose, Throat Exam: normal ENT inspection Neck: non-tender, full range of motion, supple Respiratory: chest non-tender, no respiratory distress, no accessory muscle use , wheezing - right >left side lungs, other - speaks in full sentences Cardiovascular/Chest: normal peripheral pulses, regular rate, rhythm, no murmur Peripheral Pulses: radial,right: 2+, radial,left: 2+ Gastrointestinal/Abdominal: non tender, soft, no organomegaly Extremity: non-tender, no calf tenderness, pedal edema - bilateral 1+ Neurologic: alert, normal mood/affect, oriented x 3 Skin Exam: normal color, warm/dry Progress - Progress Progress: 11/10/17 13:53 Vital Signs - 8 hr 11/10/17 13:21 Temperature 98 F Pulse Rate [ 96 H Right Brachial] Respiratory 24 Rate Blood Pressure 104/77 [Right Arm] O2 Sat by Pulse 97 Oximetry - Results/Orders Results/Orders: 11/10/17 13:45 EKG STAT 11/10/17 16:30 URINE DRUG SCREEN, 7 ASSAY Stat URINALYSIS Stat 11/11/17 09:00 [facility] Daily Laboratory Results - last 24 hr 11/10/17 13:49 WBC 7.6 RBC 4.72 Hgb 13.3 L Hct 40.0 L MCV 84.6 MCH 28.1 MCHC 33.2 RDW 15.8 H Plt Count 254 MPV 8.9 Absolute Neuts (auto) 5.30 Absolute Lymphs (auto) 1.70 Absolute Monos (auto) 0.40 Absolute Eos (auto) 0.30 Absolute Basos (auto) 0.10 Neutrophils % 68.9 Lymphocytes % 21.7 Monocytes % 4.7 Eosinophils % 3.4 Basophils % 1.3 PT 10.3 INR 1.03 PTT (SP) 26.1 Sodium 140 Potassium 3.3 L Chloride 101 Carbon Dioxide 31 Anion Gap 11.3 L BUN 20 H Creatinine 1.73 H BUN/Creatinine Ratio 11.6 Random Glucose 261 H Serum Osmolality 291.0 Calcium 8.6 Magnesium 2.0 Total Bilirubin 0.6 Direct Bilirubin < 0.1 Indirect Bilirubin 0.5 AST 21 ALT 25 Alkaline Phosphatase 82 Creatine Kinase 79 CK-MB (CK-2) 2.8 CK-MB (CK-2) % Not Reportable Troponin I 0.07 H* B-Natriuretic Peptide 594.0 H* Serum Total Protein 6.1 L Albumin 2.9 L discuss test result with patient that he is retaining fluid in his lungs and slightly elevated troponin-might have mild myocardial injury agreed to go to [facility] and see 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;Talked to hospitalist for transfer patient with stable VS. - EKG/XRAY/CT EKG: Sinus, nonspecific ST T wave Chg Comments: HR-84;NSR XRAY: chest - vascular congestion Departure - Departure Clinical Impression: Elevated troponin I level, Diabetes 1.5, managed as type 1, Dyspnea due to congestive heart failure Time of Disposition: 16:59 Disposition: Transfer to Hospital Condition: Fair Departure Forms: Patient Portal Self Enrollment Referrals: DIANE CHAVIRA [Primary Care Provider] - 1-2 Weeks Home Medications: Ambulatory Orders Albuterol Inhaler [Ventolin Hfa Inhaler] 2 puff INH QID PRN #1 inh 06/08/14 Aspirin [Aspirin Adult Low Dose] 325 mg PO DAILY 05/14/16 Carvedilol 25 mg PO BID 05/14/16 Lisinopril & Hydrochlorothiazi [Lisinopril/Hctz 20-25 mg] 1 tab PO DAILY Nitroglycerin 0.4 mg Tab [Nitrostat] 0 ea SL .Q5M 05/14/16 Amlodipine Besylate 10 mg PO DAILY 07/21/17 Atorvastatin Calcium [Lipitor] 40 mg PO DAILY 07/21/17 Insulin Degludec [Tresiba Flextouch] 38 unit SC DAILY 07/21/17 Levocetirizine Dihydrochloride [Levocetirizine Dihydrochl] 5 mg PO DAILY Liraglutide [Victoza] 1.2 mg SC DAILY 07/21/17 [id number]-5-[id number] Ethyl Esters [Lovaza 1 gm] 2 cap PO BID 07/21/17 Furosemide [Lasix] 40 mg PO BID 11/10/17 Glipizide 5 mg PO DAILY 11/10/17 Potassium Chloride Tab [K-Dur] 20 meq PO BID 11/10/17 Transfer to Outside Facility - Transfer Information Accepting Provider:: Accepting Facility: [facility] Reason for Transfer: required specialist 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
[2017-11-10] MEDS ORDERED: methylPREDNISolone SODIUM SUC 125 MG/2 ML VIAL IV ONE (13:44)
[2017-11-10] MEDS ORDERED: LEVALBUTEROL NEBS 1.25 MG/3 ML VIAL NEB ONE (13:44)
[2017-11-10] MEDS ORDERED: BUMETANIDE 0.25 MG/ML VIAL IV ONE ×2 (13:54→15:49)
[2017-11-10 14:03] VITALS: O2SAT 96
--- NOTE | 2017-11-10 14:07 | RAD ---
EXAM DESCRIPTION: Chest,1 View CLINICAL HISTORY: 62 years Male, sob COMPARISON: Previous study from July 25, 2007 TECHNIQUE: AP portable chest. FINDINGS: Heart size is large with increased pulmonary vascularity. Large cardiac silhouette could be cardiomegaly or pericardial effusion. The former is favored with vascular congestion. Heart is larger than on previous study. Plate and screws in lower C-spine. Minimal infiltrate or edema in the medial right lung base. No pulmonary mass or worrisome nodule. No pneumothorax. Small pleural effusions are suspected. Bones are unremarkable. IMPRESSION: Large heart with vascular congestion worrisome for congestive failure or volume overload. Electronically signed by: Nilesh Washington MD 11/10/2017 2:06 PM CDT
[2017-11-10] MEDS ORDERED: ASPIRIN (CHEWABLE) 81 MG TAB PO ONE (14:27)
[2017-11-10] MEDS ORDERED: NITROGLYCERIN 0.4 MG 25 EA TAB SL ONE (15:50)
[2017-11-10 17:09] VITALS: BP 154/90; TEMP 97.5
== END 2017-11-10 17:13 | disposition short-term general hospital (02) ==
LOC: ER 13:09
DX: I50.9 Heart failure, unspecified (principal); E10.9 Type 1 diabetes mellitus without complications; R79.89 Other specified abnormal findings of blood chemistry; J44.9 Chronic obstructive pulmonary disease, unspecified; I25.10 Atherosclerotic heart disease of native coronary artery without angina pectoris; Z99.81 Dependence on supplemental oxygen; Z85.528 Personal history of other malignant neoplasm of kidney; Z90.5 Acquired absence of kidney; Z79.899 Other long term (current) drug therapy; Z87.891 Personal history of nicotine dependence; Z79.82 Long term (current) use of aspirin; Z79.4 Long term (current) use of insulin
CPT/HCPCS: 36415; 71045; 80048; 80076; 80307; 81001; 82550; 82553; 83880; 84484; 85025; 85610; 85730; 93005; 94640; J2930; J3490; J7614

== ENCOUNTER 2017-12-23 02:31 | Emergency (ER) | payer MEDICARE ==
[2017-12-23] MEDS ORDERED: SODIUM CHLORIDE 0.9% (FLUSH) 10 ML SYG IV PRN (02:38)
[2017-12-23] MEDS ORDERED: NITROGLYCERIN 0.4 MG 25 EA TAB SL ONE ×3 (02:38→04:04)
[2017-12-23] MEDS ORDERED: BUMETANIDE 0.25 MG/ML VIAL IV ONE (02:43)
--- NOTE | 2017-12-23 02:45 | ED.PDOC ---
History of Present Illness - General Chief Complaint: Cardiovascular Problem Stated Complaint: shortness of breath and edema Time Seen by Provider: 12/23/17 02:39 Source: patient Exam Limitations: no limitations - History of Present Illness Initial Comments: Jordan Handley 62 y/o male with history of copd,chf-diastolic ,htn,DM2 came to ER with worsening SOB for the last 3 days as well as leg swelling.Has also non productive cough and exertional dyspnea.Had echocardiogram May 2016 EF-65%; Hyperdynamic also he has Home o2 used it occasionally. Timing/Duration: getting worse, other - 2 days Severity: moderate Improving Factors: nothing Worsening Factors: other - see hpi Associated Symptoms: cough - dry Allergies/Adverse Reactions: Allergies NO KNOWN ALLERGY Allergy (Verified 07/21/17 23:27) Home Medications: Ambulatory Orders Albuterol Inhaler [Ventolin Hfa Inhaler] 2 puff INH QID PRN #1 inh 06/08/14 Aspirin [Aspirin Adult Low Dose] 325 mg PO DAILY 05/14/16 Carvedilol 25 mg PO BID 05/14/16 Lisinopril & Hydrochlorothiazi [Lisinopril/Hctz 20-25 mg] 1 tab PO DAILY Nitroglycerin 0.4 mg Tab [Nitrostat] 0 ea SL .Q5M 05/14/16 Amlodipine Besylate 10 mg PO DAILY 07/21/17 Atorvastatin Calcium [Lipitor] 40 mg PO DAILY 07/21/17 Insulin Degludec [Tresiba Flextouch] 38 unit SC DAILY 07/21/17 Levocetirizine Dihydrochloride [Levocetirizine Dihydrochl] 5 mg PO DAILY Liraglutide [Victoza] 1.2 mg SC DAILY 07/21/17 Cyfsm-7-Bvnl Ethyl Esters [Lovaza 1 gm] 2 cap PO BID 07/21/17 Furosemide [Lasix] 40 mg PO BID 11/10/17 Glipizide 5 mg PO DAILY 11/10/17 Potassium Chloride Tab [K-Dur] 20 meq PO BID 11/10/17 Review of Systems - Review of Systems Constitutional: States: no symptoms reported EENTM: States: no symptoms reported Respiratory: States: see HPI Cardiology: States: see HPI, edema Gastrointestinal/Abdominal: States: no symptoms reported Genitourinary: States: no symptoms reported Musculoskeletal: States: no symptoms reported Skin: States: no symptoms reported Neurological: States: no symptoms reported Past Medical History (General) - Patient Medical History Hx Seizures: No Hx Stroke: No Hx Asthma: Yes Hx of COPD: Yes Hx Cardiac Disorders: Yes Hx Congestive Heart Failure: Yes Hx Pacemaker: No Hx Hypertension: Yes Hx Diabetes: Yes Hx Renal Disease: Yes Hx Cancer: Yes - Kidney(left) Hx MRSA: No Hx Other PMH: Yes - Obstructive sleep apnea-has cpap but accdg. to patient keeps him awake Surgical History: other - left nephrectomy,neck ankle -ORIF - Vaccination History Hx Tetanus, Diphtheria Vaccination: Yes Hx Influenza Vaccination: Yes Hx Pneumococcal Vaccination: Yes - Social History Hx Tobacco Use: Yes Hx Alcohol Use: Yes - Yrs ago Hx Substance Use: No Hx Depression: No Hx Physical Abuse: No Hx Emotional Abuse: No - Activities of Daily Living Patient Lives Alone: No Grooming Ability: Independent Eating (Feeding) Ability: Independent Toileting Ability: Independent - Female History Patient : No Family Medical History - Family History Mother Family History: Unknown Hx Family Congestive Heart Failure: Yes Hx Family Hypertension: Yes - parents Hx Cardiac Disease: Yes - parents Hx Family Diabetes: Yes Hx Family Cancer: Yes - skin,colon Physical Exam - Physical Exam General Appearance: Alert, No apparent distress Eye Exam: bilateral normal Ears, Nose, Throat: hearing grossly normal, normal ENT inspection, normal pharynx Neck: non-tender, full range of motion, supple, normal inspection Respiratory: chest non-tender, no respiratory distress, no accessory muscle use , decreased breath sounds Cardiovascular/Chest: normal peripheral pulses, tachycardia - hr-96 Peripheral Pulses: radial,right: 2+, radial,left: 2+ Gastrointestinal/Abdominal: normal bowel sounds, non tender, soft, no organomegaly Back Exam: no CVA tenderness, no vertebral tenderness Extremity: no calf tenderness, pedal edema Neurologic: alert, oriented x 3 Skin Exam: normal color, warm/dry Progress - Progress Progress: 12/23/17 03:15 Vital Signs - 8 hr 12/23/17 12/23/17 02:35 02:53 Temperature 99.2 F Pulse Rate 89 Pulse Rate [ 89 Right Radial] Respiratory 28 H Rate Blood Pressure 213/118 [Left Arm] O2 Sat by Pulse 91 L 97 Oximetry - Results/Orders Results/Orders: 12/23/17 02:38 IV Care:Saline Lock per Protoc QSHIFT Telemetry .ONCE Sodium Chloride 0.9% (Flush) [Saline Flush Syringe] 10 ml IV PRN PRN EKG Stat Pulse Ox Stat 12/23/17 03:51 URINE DRUG SCREEN, 7 ASSAY Stat 12/23/17 04:54 URINALYSIS Stat Laboratory Results - last 24 hr 12/23/17 12/23/17 12/23/17 02:38 02:39 02:43 WBC 9.1 RBC 5.00 Hgb 14.0 Hct 42.4 MCV 84.8 MCH 28.0 MCHC 33.0 RDW 15.6 H Plt Count 262 MPV 9.4 Absolute Neuts (auto) 5.90 Absolute Lymphs (auto) 2.30 Absolute Monos (auto) 0.40 Absolute Eos (auto) 0.30 Absolute Basos (auto) 0.10 Neutrophils % 65.3 Lymphocytes % 25.9 Monocytes % 4.6 Eosinophils % 3.1 Basophils % 1.1 PT 10.2 INR 1.02 PTT (SP) 26.1 D-Dimer, Quantitative 2.03 H* Sodium 142 Potassium 3.7 Chloride 104 Carbon Dioxide 32 H Anion Gap 9.7 L BUN 28 H Creatinine 2.23 H BUN/Creatinine Ratio 12.6 Random Glucose 200 H Serum Osmolality 294.2 Calcium 9.0 Magnesium 2.2 Total Bilirubin 0.5 0.5 Direct Bilirubin < 0.1 < 0.1 Indirect Bilirubin 0.4 0.4 AST 22 21 ALT 27 27 Alkaline Phosphatase 87 87 Creatine Kinase 106 CK-MB (CK-2) 3.4 CK-MB (CK-2) % Not Reportable Troponin I 0.11 H* B-Natriuretic Peptide 1310.0 H* Serum Total Protein 6.3 L 6.3 L Albumin 2.9 L 2.9 L - EKG/XRAY/CT EKG: Sinus, nonspecific ST T wave Chg - inferior leads Comments: HR-96 XRAY: chest - no significant change Departure - Departure Clinical Impression: Elevated troponin I level, Renal insufficiency, History of nephrectomy, unilateral Acute exacerbation of congestive heart failure Qualifiers: Heart failure type: diastolic Qualified Code(s): I50.33 - Acute on chronic diastolic (congestive) heart failure Time of Disposition: 05:19 Disposition: Transfer to Hospital Condition: Fair Departure Forms: ED Discharge - Pt. Copy, Patient Portal Self Enrollment Referrals: Fercho Ibarra MD [Primary Care Provider] - 1-2 Weeks Home Medications: Ambulatory Orders Albuterol Inhaler [Ventolin Hfa Inhaler] 2 puff INH QID PRN #1 inh 06/08/14 Aspirin [Aspirin Adult Low Dose] 325 mg PO DAILY 05/14/16 Carvedilol 25 mg PO BID 05/14/16 Lisinopril & Hydrochlorothiazi [Lisinopril/Hctz 20-25 mg] 1 tab PO DAILY Nitroglycerin 0.4 mg Tab [Nitrostat] 0 ea SL .Q5M 05/14/16 Amlodipine Besylate 10 mg PO DAILY 07/21/17 Atorvastatin Calcium [Lipitor] 40 mg PO DAILY 07/21/17 Insulin Degludec [Tresiba Flextouch] 38 unit SC DAILY 07/21/17 Levocetirizine Dihydrochloride [Levocetirizine Dihydrochl] 5 mg PO DAILY Liraglutide [Victoza] 1.2 mg SC DAILY 07/21/17 Qloqm-8-Hiyq Ethyl Esters [Lovaza 1 gm] 2 cap PO BID 07/21/17 Furosemide [Lasix] 40 mg PO BID 11/10/17 Glipizide 5 mg PO DAILY 11/10/17 Potassium Chloride Tab [K-Dur] 20 meq PO BID 11/10/17 Transfer to Outside Facility - Transfer Information Accepting Provider:: -Hospitalist Accepting Facility: 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
[2017-12-23] MEDS ORDERED: ASPIRIN (CHEWABLE) 81 MG TAB PO ONE (02:57)
--- NOTE | 2017-12-23 03:03 | RAD ---
Chest single view on 12/23/2017 CLINICAL INDICATION: Shortness of breath, cough COMPARISON: 11/10/2017 FINDINGS: Heart is upper limits normal for size. Mild increased interstitial opacities may be chronic in nature versus minimal edema. The lungs are otherwise clear. Vascular calcification is noted in the aorta. Hilar and mediastinal contours are within normal limits. IMPRESSION: No significant change in the appearance of the chest. Electronically signed by: Geoff Olmos 12/23/2017 3:02 AM CDT
[2017-12-23] MEDS ORDERED: NITROGLYCERIN 0.4 MG/HR PATCH TOP ONE (03:13)
[2017-12-23] MEDS ORDERED: hydrALAZINE HCl 20 MG/ML VIAL IV ONE (04:17)
[2017-12-23 06:25] VITALS: O2SAT 96
[2017-12-23 06:34] VITALS: BP 158/94; TEMP 98.2
== END 2017-12-23 05:45 | disposition short-term general hospital (02) ==
LOC: ER 02:31
DX: I50.33 Acute on chronic diastolic (congestive) heart failure (principal); R79.89 Other specified abnormal findings of blood chemistry; N28.9 Disorder of kidney and ureter, unspecified; E11.9 Type 2 diabetes mellitus without complications; I10 Essential (primary) hypertension; J44.9 Chronic obstructive pulmonary disease, unspecified; Z90.5 Acquired absence of kidney; Z99.81 Dependence on supplemental oxygen; Z79.899 Other long term (current) drug therapy; Z79.82 Long term (current) use of aspirin; Z79.4 Long term (current) use of insulin; Z85.528 Personal history of other malignant neoplasm of kidney; Z87.891 Personal history of nicotine dependence
CPT/HCPCS: 71045; 80048; 80076; 80307; 81001; 82550; 82553; 83880; 84484; 85025; 85379; 85610; 85730; 93005; 94760; J0360; J3490

== ENCOUNTER → 2018-01-26 | Outpatient (CLI) | payer MEDICARE | LOC: BFHH 12:08 | PROVIDERS: ATTEND General Practice | DX: I13.0 Hypertensive heart and chronic kidney disease with heart failure and stage 1 through stage 4 chronic kidney disease, or unspecified chronic kidney disease (principal); N18.9 Chronic kidney disease, unspecified; R06.02 Shortness of breath ==

== ENCOUNTER 2018-07-05 14:40 | Emergency (ER) | payer MEDICARE ==
--- NOTE | 2018-07-05 15:14 | ED.PDOC ---
History of Present Illness - General Chief Complaint: Respiratory Problem Stated Complaint: shortness of breath Time Seen by Provider: 07/05/18 15:02 Source: patient Exam Limitations: no limitations - History of Present Illness Initial Comments: C/O COUGH, SOB. FEELS LIKE HE HAS A "FLUID BUILD UP AROUND HIS HEART". TOOK 2 EXTRA LASIX THIS AM WITHOUT RELIEF. Severity: moderate Activities at Onset: none Improving Factors: nothing Worsening Factors: nothing Allergies/Adverse Reactions: Allergies NO KNOWN ALLERGY Allergy (Verified 07/21/17 23:27) Home Medications: Ambulatory Orders Albuterol Inhaler [Ventolin Hfa Inhaler] 2 puff INH QID PRN #1 inh 06/08/14 Aspirin [Aspirin Adult Low Dose] 325 mg PO DAILY 05/14/16 Nitroglycerin 0.4 mg Tab [Nitrostat] 0 ea SL .Q5M 05/14/16 Atorvastatin Calcium [Lipitor] 40 mg PO DAILY 07/21/17 Bumetanide 2 mg PO DAILY 07/05/18 Insulin Glargine [Lantus Solostar] 60 unit SC DAILY 07/05/18 Isosorbide Mononitrate [Isosorbide Mononitrate ER] 60 mg PO DAILY 07/05/18 Losartan Potassium 100 mg PO DAILY 07/05/18 Spironolactone 25 mg PO DAILY 07/05/18 hydrALAZINE HCl [(None)] 25 mg PO TID 07/05/18 Review of Systems - Review of Systems Constitutional: Denies: chills, fever EENTM: States: no symptoms reported Respiratory: States: cough, short of breath, other - PROD THICK WHITE SPUTUM Cardiology: Denies: chest pain, palpitations Gastrointestinal/Abdominal: Denies: abdominal pain, nausea, vomiting Genitourinary: States: no symptoms reported Musculoskeletal: States: no symptoms reported, other - NO EDEMA Skin: States: no symptoms reported Neurological: States: no symptoms reported Endocrine: States: no symptoms reported Hematologic/Lymphatic: States: no symptoms reported Past Medical History (General) - Patient Medical History Hx Seizures: No Hx Stroke: No Hx Dementia: No Hx Asthma: Yes Hx of COPD: Yes Hx Cardiac Disorders: Yes Hx Congestive Heart Failure: Yes Hx Pacemaker: No Hx Hypertension: Yes Hx Thyroid Disease: No Hx Diabetes: Yes Hx Renal Disease: Yes Hx Cancer: Yes - Kidney(left) Hx of HIV: No Hx Hepatitis C: No Hx MRSA: No - Vaccination History Hx Tetanus, Diphtheria Vaccination: Yes Hx Influenza Vaccination: Yes Hx Pneumococcal Vaccination: Yes - Social History Hx Tobacco Use: Yes Hx Alcohol Use: Yes - Yrs ago Hx Substance Use: No Hx Substance Use Treatment: No Hx Depression: No Hx Physical Abuse: No Hx Emotional Abuse: No Hx Suspected Abuse: No - Female History Patient : No Family Medical History - Family History Mother Family History: Unknown Hx Family Congestive Heart Failure: Yes Hx Family Hypertension: Yes - parents Hx Cardiac Disease: Yes - parents Hx Family Diabetes: Yes Hx Family Cancer: Yes - skin,colon Physical Exam - Physical Exam General Appearance: Alert, Other - MILD RESP DISTRESS Eyes, Ears, Nose, Throat Exam: PERRL/EOMI, normal ENT inspection Neck: non-tender, full range of motion, supple Respiratory: other - DIMINISHED TROUGHOUT, BIBASILAR RALES, LLL WHEEZES, NO RHONCHI. Cardiovascular/Chest: regular rate, rhythm, no murmur Gastrointestinal/Abdominal: non tender, soft, no organomegaly Extremity: normal range of motion, non-tender, normal inspection Neurologic: alert, normal mood/affect Skin Exam: normal color, warm/dry Lymphatic: no adenopathy Progress - Progress Progress: 07/05/18 16:37 FEELS BETTER AFTER NEB. NO SOURCE FOR FEVER BUT WILL GET UA. ELEVATED BNP WILL GIVE LASIX AND CONTINUE OBSERVATION. 07/05/18 17:30 D/W DR GORMAN AGREES WITH LASIX AND NTG STATES PT COULD STAY HERE. D/W FERNANDO HULL, NO ABILITY TO DO NTG DRIP. D/W DR MOMIN, ACCEPTS PT IN TRANSFER. 07/05/18 19:06 BP 150'S/80'S D/W HOSPITALIST ACCEPTS PT FOR DIRECT ADMIT. - EKG/XRAY/CT EKG: Sinus - RATE 93, NL AXIS, NL INTERVALS, , nonspecific ST T wave Chg - NAIP, , Unchanged from - 12/23/17 XRAY: chest - CARDIOMEGALY, MILD INTERSTITIAL EDEMA, NO LOBAR INFILTRATE Departure - Departure Clinical Impression: Elevation of cardiac enzymes CHF (congestive heart failure) Qualifiers: Heart failure type: unspecified Heart failure chronicity: acute Qualified Code(s): I50.9 - Heart failure, unspecified Hypertension Qualifiers: Hypertension type: essential hypertension Qualified Code(s): I10 - Essential (primary) hypertension Disposition: Transfer to Hospital Condition: Fair Departure Forms: ED Discharge - Pt. Copy, Patient Portal Self Enrollment Referrals: Fercho Ibarra MD [Primary Care Provider] - 1-2 Weeks Home Medications: Ambulatory Orders Albuterol Inhaler [Ventolin Hfa Inhaler] 2 puff INH QID PRN #1 inh 06/08/14 Aspirin [Aspirin Adult Low Dose] 325 mg PO DAILY 05/14/16 Nitroglycerin 0.4 mg Tab [Nitrostat] 0 ea SL .Q5M 05/14/16 Atorvastatin Calcium [Lipitor] 40 mg PO DAILY 07/21/17 Bumetanide 2 mg PO DAILY 07/05/18 Insulin Glargine [Lantus Solostar] 60 unit SC DAILY 07/05/18 Isosorbide Mononitrate [Isosorbide Mononitrate ER] 60 mg PO DAILY 07/05/18 Losartan Potassium 100 mg PO DAILY 07/05/18 Spironolactone 25 mg PO DAILY 07/05/18 hydrALAZINE HCl [(None)] 25 mg PO TID 07/05/18 Transfer to Outside Facility - Transfer Information Accepting Provider:: DR MOMIN Accepting Facility: [facility] Reason for Transfer: specialized care not available
[2018-07-05] MEDS ORDERED: ACETAMINOPHEN 325 MG TAB PO ONE (15:21)
[2018-07-05] MEDS ORDERED: IPRATROPIUM/ALBUTEROL 3 ML VIAL NEB ONE (15:21)
--- NOTE | 2018-07-05 16:05 | RAD ---
EXAM DESCRIPTION: Chest,1 View CLINICAL HISTORY: 63 years Male, COUGH, SOB, FEVER COMPARISON: December 23, 2017 TECHNIQUE: AP portable chest. FINDINGS: Single view of the chest shows a fair inspiration with calcified tortuous aorta and mild cardiomegaly. Vascularity is normal and the lung barney are adequately expanded and clear. No infiltrates or effusion or mass or consolidation seen. IMPRESSION: Cardiomegaly without congestive failure, otherwise negative chest. Electronically signed by: Gen Still MD 07/05/2018 4:02 PM CDT
[2018-07-05 16:18] VITALS: O2SAT 94
[2018-07-05] MEDS ORDERED: FUROSEMIDE INJ 40 MG/4 ML VIAL IV ONE (16:19)
[2018-07-05] MEDS ORDERED: NITROGLYCERIN/D5W IV 250 ML IVS ONE (17:40)
[2018-07-05] MEDS ORDERED: NITROGLYCERIN/D5W IV 50,000 MCG in PREMIX BOTTLE 1 BOTTLE IVS SCH (18:00)
[2018-07-05 19:11] VITALS: BP 154/85; TEMP 100.4
== END 2018-07-05 19:00 | disposition short-term general hospital (02) ==
LOC: ER 14:40
DX: I50.9 Heart failure, unspecified (principal); I13.0 Hypertensive heart and chronic kidney disease with heart failure and stage 1 through stage 4 chronic kidney disease, or unspecified chronic kidney disease; R79.89 Other specified abnormal findings of blood chemistry; E11.22 Type 2 diabetes mellitus with diabetic chronic kidney disease; N18.9 Chronic kidney disease, unspecified; I51.9 Heart disease, unspecified; J44.9 Chronic obstructive pulmonary disease, unspecified; Z85.528 Personal history of other malignant neoplasm of kidney; Z87.891 Personal history of nicotine dependence; Z79.84 Long term (current) use of oral hypoglycemic drugs; Z79.82 Long term (current) use of aspirin; Z79.899 Other long term (current) drug therapy
CPT/HCPCS: 36415; 71045; 80053; 81001; 83880; 84484; 85025; 87040; 93005; 94640; J1940; J7620

== ENCOUNTER 2020-02-24 01:08 | Emergency (ER) | payer MEDICARE, OTHER ==
--- NOTE | 2020-02-24 01:55 | RAD ---
EXAM DESCRIPTION: XR FOOT, LEFT 3 VIEWS CLINICAL HISTORY: left foot numbness TECHNIQUE: Three views of the left foot are submitted. COMPARISON: None available for comparison FINDINGS: Bones: Remote fibular intramedullary viola fixation. No acute fracture. No osseous destruction or erosion. Joints: Mild degenerative changes at the 1st metatarsophalangeal articulation. Soft tissues: Unremarkable Other: Atherosclerotic disease. IMPRESSION: No acute abnormality. Electronically signed by: Jerome Arroyo MD 02/24/2020 1:53 AM [facility]
--- NOTE | 2020-02-24 02:07 | ED.PDOC ---
History of Present Illness - General Chief Complaint: Skin/Abrasion/Tear Stated Complaint: Injury toe of left foot Time Seen by Provider: 02/24/20 01:33 Source: patient, RN notes reviewed, Vital Signs reviewed, family Exam Limitations: no limitations - History of Present Illness Initial Comments: Patient is a 64-year-old obese white male who presents with complaints of skin falling off one of his toes on his left foot. He is not sure when this happened but he noticed blood this morning. Patient has no feeling in his feet secondary to his diabetes. Patient is approximately 3 to 4 months out from cardiac bypass surgery. Patient denies any pain. Patient denies headache, dizziness, blurry vision, chest pain, shortness of breath, nausea, vomiting, diarrhea. Timing/Duration: unsure Severity: moderate Improving Factors: nothing Worsening Factors: nothing Associated Symptoms: denies symptoms Allergies/Adverse Reactions: Allergies NO KNOWN ALLERGY Allergy (Verified 02/24/20 01:36) Home Medications: Ambulatory Orders Albuterol Inhaler [Ventolin Hfa Inhaler] 2 puff INH QID PRN #1 inh 06/08/14 Aspirin [Aspirin Adult Low Dose] 325 mg PO DAILY 05/14/16 Nitroglycerin 0.4 mg Tab [Nitrostat] 0 ea SL .Q5M 05/14/16 Atorvastatin Calcium [Lipitor] 40 mg PO DAILY 07/21/17 Bumetanide 2 mg PO DAILY 07/05/18 Insulin Glargine [Lantus Solostar] 60 unit SC DAILY 07/05/18 Isosorbide Mononitrate [Isosorbide Mononitrate ER] 60 mg PO DAILY 07/05/18 Losartan Potassium 100 mg PO DAILY 07/05/18 Spironolactone 25 mg PO DAILY 07/05/18 hydrALAZINE HCl [(None)] 25 mg PO TID 07/05/18 Clindamycin HCl 300 mg PO QID #40 cap 02/24/20 Review of Systems - Review of Systems Constitutional: States: no symptoms reported, see HPI. Denies: chills, fever, malaise, weakness EENTM: States: no symptoms reported. Denies: eye pain, blurred vision, double vision Respiratory: States: no symptoms reported. Denies: cough, short of breath, stridor, wheezing Cardiology: States: no symptoms reported. Denies: chest pain, palpitations, syncope Gastrointestinal/Abdominal: States: no symptoms reported. Denies: abdominal pain, diarrhea, nausea, vomiting Genitourinary: States: no symptoms reported. Denies: dysuria, frequency Musculoskeletal: States: see HPI, other - Tissue missing from the underside of his left third toe. Skin: States: see HPI, other - Tissue missing from the underside of his left third toe. Neurological: States: see HPI, numbness, paresthesia, pre-existing deficit - LE numbness., tingling - Bilateral lower extremity secondary to his diabetes Endocrine: States: no symptoms reported. Denies: increased hunger, increased thirst, increased urine, unexplained weight gain, unexplained weight loss Hematologic/Lymphatic: States: no symptoms reported. Denies: blood clots, easy bleeding All other Systems: No Change from Baseline Past Medical History (General) - Patient Medical History Hx Seizures: No Hx Stroke: No Hx Dementia: No Hx Asthma: Yes Hx of COPD: Yes Hx Cardiac Disorders: Yes Hx Congestive Heart Failure: Yes Hx Pacemaker: No Hx Hypertension: Yes Hx Thyroid Disease: No Hx Diabetes: Yes Hx Renal Disease: Yes Hx Cancer: Yes - Kidney(left) Hx of HIV: No Hx Hepatitis C: No Hx MRSA: No Surgical History: coronary bypass surgery - Vaccination History Hx Tetanus, Diphtheria Vaccination: Yes Hx Influenza Vaccination: Yes Hx Pneumococcal Vaccination: Yes - Social History Hx Tobacco Use: Yes Hx Alcohol Use: Yes - Yrs ago Hx Substance Use: No Hx Substance Use Treatment: No Hx Depression: No Hx Physical Abuse: No Hx Emotional Abuse: No Hx Suspected Abuse: No - Female History Patient : No Family Medical History - Family History Mother Family History: Unknown Hx Family Congestive Heart Failure: Yes Hx Family Hypertension: Yes - parents Hx Cardiac Disease: Yes - parents Hx Family Diabetes: Yes Hx Family Cancer: Yes - skin,colon Physical Exam - Physical Exam General Appearance: Alert, Comfortable, Obese, Unkempt, Well Developed, Well Hydrated, Well Nourished Eye Exam: bilateral normal Ears, Nose, Throat: hearing grossly normal, normal pharynx Neck: non-tender, full range of motion, supple Respiratory: chest non-tender, lungs clear, normal breath sounds, no respiratory distress, no accessory muscle use Cardiovascular/Chest: normal peripheral pulses, regular rate, rhythm, no murmur, other - mild LE edema bilaterally ot mid shins Peripheral Pulses: radial,right: 2+, radial,left: 2+, dorsalis pedis,right: 1+, dorsalis pedis,left: 1+ Gastrointestinal/Abdominal: normal bowel sounds, non tender, soft, distended - secondary to obesity Back Exam: no CVA tenderness, no vertebral tenderness Extremity: normal range of motion, non-tender, slow capillary refill, other - Patient with soft tissue sloughing off of foot along the underside of the third toe. No foul odor noted. Bleeding is controlled. 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 Skin Exam: mottled - in bilateral feet. , other - Patient is missing tissue from the underside of his left third toe. Progress - Progress Progress: Differential diagnosis: Cellulitis, gangrene, osteomyelitis, dry gangrene among others. 02/24/20 06:26 Patient with sloughing off of skin from the underside of the left third toe. Suspect patient will need partial amputation of toe if not a partial ray procedure. Patient without a white count and C-reactive protein is not elevated. ESR is elevated. I think this is consistent with osteomyelitis. I will start the patient on clindamycin due to his renal insufficiency. He did receive an IV dose of clindamycin here in the department. Patient will need to follow-up with orthopedics on Wednesday here at the hospital. I will give patient's instructions to return Wednesday morning to schedule appointment with Dr. Callejas. I discussed this plan of care with the patient and his son and they voiced understanding and agreement. Ousmane Nichols M.D. #[id number] - Results/Orders Results/Orders: EXAM DESCRIPTION: XR FOOT, LEFT 3 VIEWS CLINICAL HISTORY: left foot numbness TECHNIQUE: Three views of the left foot are submitted. COMPARISON: None available for comparison FINDINGS: Bones: Remote fibular intramedullary viola fixation. No acute fracture. No osseous destruction or erosion. Joints: Mild degenerative changes at the 1st metatarsophalangeal articulation. Soft tissues: Unremarkable Other: Atherosclerotic disease. IMPRESSION: No acute abnormality. Electronically signed by: Jerome Arroyo MD 02/24/2020 1:53 AM [employer] 02/24/20 02:00 BLOOD CULTURE Stat 02/24/20 02:14 WOUND CULTURE Stat 02/24/20 02:23 HGBA1C [HEMOGLOBIN A1C] Stat Laboratory Results - last 24 hr 02/24/20 02/24/20 02/24/20 01:55 01:55 01:55 WBC 9.3 RBC 4.76 Hgb 13.6 L Hct 39.7 L MCV 83.4 MCH 28.7 MCHC 34.4 RDW 16.6 H Plt Count 237 MPV 8.9 Absolute Neuts (auto) 6.10 Absolute Lymphs (auto) 2.10 Absolute Monos (auto) 0.70 Absolute Eos (auto) 0.30 Absolute Basos (auto) 0.10 Neutrophils % 65.4 Lymphocytes % 22.0 Monocytes % 7.4 Eosinophils % 3.7 Basophils % 1.5 ESR 25 H Sodium 139 Potassium 4.0 Chloride 100 L Carbon Dioxide 27 Anion Gap 16.0 BUN 57 H Creatinine 3.21 H BUN/Creatinine Ratio 17.8 Random Glucose 250 H Hemoglobin A1c Serum Osmolality 301.8 H Calcium 8.6 Total Bilirubin 0.5 AST 15 ALT 22 Alkaline Phosphatase 78 C-Reactive Protein Serum Total Protein 7.4 Albumin 3.5 Globulin 3.9 H Albumin/Globulin Ratio 0.9 L Lipase 57 H 02/24/20 02/24/20 01:55 02:14 WBC RBC Hgb Hct MCV MCH MCHC RDW Plt Count MPV Absolute Neuts (auto) Absolute Lymphs (auto) Absolute Monos (auto) Absolute Eos (auto) Absolute Basos (auto) Neutrophils % Lymphocytes % Monocytes % Eosinophils % Basophils % ESR Sodium Potassium Chloride Carbon Dioxide Anion Gap BUN Creatinine BUN/Creatinine Ratio Random Glucose Hemoglobin A1c 8.8 H Serum Osmolality Calcium Total Bilirubin AST ALT Alkaline Phosphatase C-Reactive Protein 1.1 H Serum Total Protein Albumin Globulin Albumin/Globulin Ratio Lipase Vital Signs 02/24/20 02/24/20 02/24/20 01:35 01:36 02:09 Temperature 96.8 F L Pulse Rate [ 68 63 Left Radial] Respiratory 22 22 16 Rate Blood Pressure 158/86 134/67 [Right Arm] O2 Sat by Pulse 97 96 Oximetry 02/24/20 02/24/20 03:00 04:00 Temperature Pulse Rate [ 60 61 Left Radial] Respiratory 16 16 Rate Blood Pressure 126/56 138/71 [Right Arm] O2 Sat by Pulse 99 96 Oximetry - EKG/XRAY/CT CT Ordered: No Departure - Departure Clinical Impression: Cellulitis of foot, left, Necrosis of toe Time of Disposition: 06:35 Disposition: Discharge to Home or Self Care Condition: Fair Departure Forms: ED Discharge - Pt. Copy, Patient Portal Self Enrollment Instructions: DI for Abrasion, Cellulitis (Skin Infection), Adult (DC), Wound Care (DC), Wound Infection Diet: diabetic diet Activity: walking as tolerated Referrals: Fercho Ibarra MD [Primary Care Provider] - 1-2 Days Itz Callejas MD [Active Staff] - 1-2 Days Prescriptions: Clindamycin HCl 300 mg PO QID #40 cap Home Medications: Ambulatory Orders Albuterol Inhaler [Ventolin Hfa Inhaler] 2 puff INH QID PRN #1 inh 06/08/14 Aspirin [Aspirin Adult Low Dose] 325 mg PO DAILY 05/14/16 Nitroglycerin 0.4 mg Tab [Nitrostat] 0 ea SL .Q5M 05/14/16 Atorvastatin Calcium [Lipitor] 40 mg PO DAILY 07/21/17 Bumetanide 2 mg PO DAILY 07/05/18 Insulin Glargine [Lantus Solostar] 60 unit SC DAILY 07/05/18 Isosorbide Mononitrate [Isosorbide Mononitrate ER] 60 mg PO DAILY 07/05/18 Losartan Potassium 100 mg PO DAILY 07/05/18 Spironolactone 25 mg PO DAILY 07/05/18 hydrALAZINE HCl [(None)] 25 mg PO TID 07/05/18 Clindamycin HCl 300 mg PO QID #40 cap 02/24/20
[2020-02-24] MEDS ORDERED: CLINDAMYCIN INJ (VIAL) 600 MG in SODIUM CHLORIDE 0.9% 50ML 50 ML IVPB ONE (02:14)
[2020-02-24] MEDS ORDERED: DOXYCYCLINE HYCLATE CAP 100 MG CAP PO ONE (02:14)
[2020-02-24 07:28] VITALS: BP 183/93; TEMP 97.8; O2SAT 99
== END 2020-02-24 07:05 | disposition home or self-care (01) ==
LOC: ER 01:08
DX: L03.116 Cellulitis of left lower limb (principal); E11.52 Type 2 diabetes mellitus with diabetic peripheral angiopathy with gangrene; I96 Gangrene, not elsewhere classified; E11.22 Type 2 diabetes mellitus with diabetic chronic kidney disease; I13.0 Hypertensive heart and chronic kidney disease with heart failure and stage 1 through stage 4 chronic kidney disease, or unspecified chronic kidney disease; I50.9 Heart failure, unspecified; N18.9 Chronic kidney disease, unspecified; R20.2 Paresthesia of skin; J44.9 Chronic obstructive pulmonary disease, unspecified; E66.9 Obesity, unspecified; Z85.528 Personal history of other malignant neoplasm of kidney; Z95.1 Presence of aortocoronary bypass graft; Z87.891 Personal history of nicotine dependence; Z79.4 Long term (current) use of insulin; Z79.82 Long term (current) use of aspirin; Z79.899 Other long term (current) drug therapy; Z68.36 Body mass index [BMI] 36.0-36.9, adult
CPT/HCPCS: 73630; 80053; 83036; 83690; 85025; 85651; 86140; 87040; 87070; A4216; J3490